=== PATIENT | male | born 1990 | race African-American/Black ===

== ENCOUNTER 2018-05-05 09:46 | Emergency (ER) | payer SELFPAY ==
[2018-05-05] MEDS: LIDOCAINE 1% (MPF) 5 ML VIAL INJ ×2 (10:53→11:45)
[2018-05-05] MEDS: CEFAZOLIN 1 GM INJ IM (11:45)
[2018-05-05] MEDS: DIPHTH/TET/ACEL PERTUSS (ADULT) 0.5 ML VIAL IM* (12:00)
[2018-05-05] MEDS: HYDROCODONE/APAP (5/325) TAB PO (12:32)
[2018-05-05] MEDS: ONDANSETRON (ODT) 4 MG TAB ODT (12:32)
== END 2018-05-05 13:01 | disposition home or self-care (01) ==
LOC: FTE 09:46
DX: S62.396A Other fracture of fifth metacarpal bone, right hand, initial encounter for closed fracture (principal); F17.210 Nicotine dependence, cigarettes, uncomplicated; W22.8XXA Striking against or struck by other objects, initial encounter; Y92.9 Unspecified place or not applicable; Z23 Encounter for immunization
CPT/HCPCS: 12001; 73130-RT; 90471; 90715; 96372; 99284-25